=== PATIENT | male | born 1945 ===

== ENCOUNTER 2017-03-24 04:00 | Outpatient (RCR) | payer MEDICARE, OTHER | END 2017-04-09 | disposition home or self-care (01) | LOC: PTY 04:00 | DX: M51.36 Other intervertebral disc degeneration, lumbar region (principal); Z85.72 Personal history of non-Hodgkin lymphomas; Z85.46 Personal history of malignant neoplasm of prostate; I10 Essential (primary) hypertension; Z90.81 Acquired absence of spleen; G89.29 Other chronic pain | CPT/HCPCS: 97110; 97140; 97162; G0283; G8978; G8979 ==